=== PATIENT | male | born 1940 | race Caucasian/White ===

== ENCOUNTER → 2017-11-10 | Outpatient (CLI) | payer MEDICARE ==
[~2017-11-10] MED LIST: HCTZ25 PO; LANS15CA38 PO; METOPROLOL PO
[2017-11-10 12:15] LABS: PLATELET COUNT, AUTOMATED 157 K/uL (150-450)
[2017-11-10 12:25] LABS: LDL CHOLESTEROL 90 mg/dl
== END ==
LOC: LAB 11:41
PROVIDERS: ATTEND Family Medicine
DX: R60.9 Edema, unspecified (principal); E78.5 Hyperlipidemia, unspecified
CPT/HCPCS: 36415; 82040; 82247; 82310; 82374; 82435; 82465; 82565; 82947; 83718; 84075; 84132; 84155; 84295; 84450; 84460; 84478; 84520; 85025

== ENCOUNTER → 2018-06-09 | Outpatient (CLI) | payer MEDICARE ==
[~2018-06-09] MED LIST changes: +APIX5TAB PO; +RIVA20TA PO
--- NOTE | 2018-06-09 12:21 | EKG ---
FACILITY: [facility] PATIENT NAME: BURTON IRBY : [id number] MR: [id number] V: [id number] EXAM DATE: ORDERING PHYSICIAN: BRIAN ABARCA TECHNOLOGIST: MICHELL Test Reason : HYPOTENSION Blood Pressure : / mmHG Vent. Rate : 087 BPM Atrial Rate : 067 BPM P-R Int : 000 ms QRS Dur : 084 ms QT Int : 384 ms P-R-T Axes : 000 063 025 degrees QTc Int : 462 ms Atrial fibrillation Abnormal ECG When compared with ECG of 15-JAN-2012 09:54, Atrial fibrillation has replaced Sinus rhythm Referred By: RIMA Confirmed By:
[2018-06-09 13:49] LABS: PLATELET COUNT, AUTOMATED 153 K/uL (150-450)
== END ==
LOC: CARD 10:28
PROVIDERS: ATTEND Family Medicine
DX: R94.31 Abnormal electrocardiogram [ECG] [EKG] (principal); I48.91 Unspecified atrial fibrillation; I36.1 Nonrheumatic tricuspid (valve) insufficiency
CPT/HCPCS: 36415; 82040; 82247; 82310; 82374; 82435; 82565; 82947; 84075; 84132; 84155; 84295; 84443; 84450; 84460; 84520; 85025; 93306

== ENCOUNTER → 2018-06-17 | Outpatient (CLI) | payer MEDICARE ==
--- NOTE | 2018-06-20 18:47 | RT HOLTER TEST ---
FACILITY: [facility] [place] PATIENT NAME: BURTON IRBY : [id number] MR: [id number] V: [id number] EXAM DATE: ORDERING PHYSICIAN: KRISTY FARAH TECHNOLOGIST: MISTI Hook-up date: 2018-06-17 10:00:00 Duration: 47:59:00 Test Indications: A-FIB Medications: N/A [id number] QRS complexes 2419 Ventricular ectopics which represent <1 % of total QRS comp. 5 Supraventricular ectopics which represent <1 % of total QRS comp. * Paced QRS complexes which represent % of total QRS comp. VENTRICULAR ECTOPY 2322 Isolated 0 Bigeminal Cycles 47 Couplets 1 Runs 3 Beats in Runs 3 Beats LONGEST at 161 BPM at 11:04:06 2018-06-17 3 Beats FASTEST at 161 BPM at 11:04:06 2018-06-17 SUPRAVENTRICULAR ECTOPY 5 Isolated 0 Couplets 0 Runs 0 Beats in Runs * Beats LONGEST at * BPM at :: -- * Beats FASTEST at * BPM at :: -- HEART RATES 48 MIN at 00:12:33 2018-06-19 99 AVG 185 MAX at 12:33:42 2018-06-17 LONGEST RR 2.160 secs at 23:49:55 2018-06-18 S-T LEVELS Channel 1 -12.800 mm MIN at 10:00:00 2018-06-17 -12.800 mm MAX at 10:00:00 2018-06-17 Channel 2 -12.800 mm MIN at 10:00:00 2018-06-17 -12.800 mm MAX at 10:00:00 2018-06-17 Channel 3 -12.800 mm MIN at 10:00:00 2018-06-17 -12.800 mm MAX at 10:00:00 2018-06-17 The patient did not report any symptoms. He was in atrial fibrillation throughout the test. He had occasional ventricular ectopy. His average heart rate was 99 beats per minute (bpm). The minimum heart rate was 48 bpm and the highest was 185 bpm. Confirmed by PASCUAL KOEHLER ([id number]) on 06/20/2018 6:46:26 PM Referred By: Overread By: PASCUAL KOEHLER
== END ==
LOC: RESP 00:35
PROVIDERS: ATTEND Internal Medicine Cardiovascular Disease
DX: I48.1 Persistent atrial fibrillation (principal)
CPT/HCPCS: 93225; 93226

== ENCOUNTER → 2018-08-17 | Outpatient (CLI) | payer MEDICARE ==
[2018-08-17 12:11] LABS: PLATELET COUNT, AUTOMATED 150 K/uL (150-450)
== END ==
LOC: LAB 09:55
PROVIDERS: ATTEND Family Medicine
DX: I48.91 Unspecified atrial fibrillation (principal)
CPT/HCPCS: 82310; 82374; 82435; 82565; 82947; 84132; 84295; 84520; 85025

== ENCOUNTER → 2018-08-17 | Outpatient (CLI) | payer MEDICARE | LOC: LAB 10:00 | PROVIDERS: ATTEND Urology | DX: R97.20 Elevated prostate specific antigen [PSA] (principal) | CPT/HCPCS: 36415; 84153 ==